=== PATIENT | male | born 1945 | race Caucasian/White ===

== ENCOUNTER 2017-01-31 09:05 | Emergency (ER) | payer OTHER, MEDICARE ==
[~2017-01-31] VITALS: Ht 180.3 cm; Wt 148.4 kg
[~2017-01-31 09:05] MED LIST: ACETAMINOPHN-T1 EACH PO; ACTOS45 MG PO; ASPIR-LOW81 MG PO; AVODART0.5 MG PO; BENAZEPRIL HCL40 MG PO; CIPRO250 MG PO; DICLOFENAC SODI75 MG PO; DOXAZOSIN MESYLA4 MG PO; GLUCOSAMINE &1 EACH PO; GLUCOSAMINE CH1 EAC2 PO; GUANFACINE HCL1 MG PO; LIPITOR80 MG PO; METFORMIN HCL1000 MG PO; METOPROLOL SUCC25 MG PO; METOPROLOL TART25 MG PO; OMEPRAZOLE20 MG PO; TRAMADOL HCL50 MG PO
[2017-01-31 09:45] LABS: HEMATOCRIT 42.6 % (38.0-50.0); MCH 28.7 PG (29.0-34.0); MCHC 32.2 G/DL (30.0-36.0); MCV 89.1 FL (86-99); PLATELET COUNT 227 K/uL (156-360); RBC DIS.WIDTH-CV 16.4 % (11.8-14.6); RBC DIS.WIDTH-SD 54.4 % (39-53); RED BLOOD COUNT 4.78 M/uL (4.00-5.50); WHITE BLOOD COUNT 7.4 K/uL (4.1-10.2)
[2017-01-31 09:56] LABS: CHLORIDE 99 mEq/L (99-109); POTASSIUM 4.3 mEq/L (3.7-5.4); SODIUM 137 mEq/L (136-147)
[2017-01-31 09:58] LABS: GLUCOSE 141 mg/dL (70-99)
[2017-01-31 10:00] LABS: ANION GAP 9 MEQ/L (2-14)
[2017-01-31 10:02] LABS: GFR ESTIMATE (CALCULATED) > 59 mL/min/
[2017-01-31 10:03] LABS: UREA NITROGEN (BUN) 19 mg/dL (9-23)
[2017-01-31 10:06] LABS: TROP-I INTERPRETATION NEGATIVE; TROPONIN-I < 0.01 ng/mL (0.0-0.30)
[2017-01-31 13:59] LABS: TROP-I INTERPRETATION NEGATIVE; TROPONIN-I < 0.01 ng/mL (0.0-0.30)
[2017-01-31 14:50] VITALS: BP 141/66
== END 2017-01-31 14:51 | disposition home or self-care (01) ==
LOC: EME 09:05
PROVIDERS: Emergency Medicine
DX: R07.89 Other chest pain (principal); E11.9 Type 2 diabetes mellitus without complications; I10 Essential (primary) hypertension; Z79.84 Long term (current) use of oral hypoglycemic drugs; E66.9 Obesity, unspecified; Z87.891 Personal history of nicotine dependence; N40.0 Benign prostatic hyperplasia without lower urinary tract symptoms
CPT/HCPCS: 71020; 71275; 80048; 84484; 85027; 93005; 99281; 99285; J7030